=== PATIENT | male | born 1950 | race Caucasian/White ===

== ENCOUNTER 2018-08-01 07:54 | Day surgery (SDC) | payer MEDICARE, BC ==
[2018-08-01] MEDS ORDERED: Dextrose 5%-Lactated Ringers 1,000 ML IV SCH (08:30)
[2018-08-01] MEDS ORDERED: Propofol 200 MG/20 ML SDV ONE (08:46)
[2018-08-01] MEDS ORDERED: Midazolam 1 MG/ML 2 ML SDV ONE (08:46)
[2018-08-01] MEDS ORDERED: fentaNYL 100 MCG/2 ML SDV ONE (08:46)
[2018-08-01] MEDS ORDERED: Pantoprazole 40 MG Vial IVPUSH ONE (10:15)
[2018-08-01 11:20] VITALS: BP 166/97
--- NOTE | 2018-08-07 11:31 | OR ---
DATE OF PROCEDURE: 08/01/2018 PREOPERATIVE DIAGNOSIS: Laryngopharyngeal dysphagia. POSTOPERATIVE DIAGNOSES: 1. Laryngopharyngeal dysphagia with no obvious laryngopharyngeal pathology. 2. Small hiatal hernia, but with active gastroesophageal reflux disease with a focal small ulcer at the esophagogastric junction. 3. Moderate antral gastritis and duodenitis. OPERATIVE PROCEDURE: Esophagogastroduodenoscopy with: 1. Biopsies of esophagogastric junction for histologic evaluation. 2. Biopsies of antrum for CLOtest. ANESTHESIA: IV sedation. INDICATION FOR PROCEDURE: This is a 67-year-old presenting with a picture of dysphagia, primarily in the laryngopharyngeal area. He denies any obvious reflux symptoms and is not presently on any antisecretory medications. The plan is to proceed with an upper GI endoscopy with biopsies and/or dilation as indicated. Potential risks including bleeding and perforation were discussed, and the patient wishes to proceed. DETAILS OF PROCEDURE: The patient was taken to the operating room, placed in a left lateral decubitus position. IV sedation was administered, after which the upper GI endoscope was passed orally through the length of the esophagus and into the stomach with retroflexion view of the fundus, thereafter through the pyloric channel and into the proximal duodenum. Findings included normal hypopharynx, larynx, and upper esophageal sphincter. No real suggestion of inflammation was seen in this region and likewise no anatomic abnormalities or masses identified. Within the body of the esophagus, no significant abnormalities were noted. At the EG junction, a small hiatal hernia was present which resulted in a fairly wide open esophagogastric junction. This was associated with some active gastroesophageal reflux disease with the EG junction being reddened and a small focal ulcer was also present. There was no plaquing or stricturing suggestive of neoplasia per se. Within the remainder of the stomach, there was some patchy antral gastritis as well as some patchy duodenitis within the duodenal bulb. The duodenum beyond that point to the junction of the second and third portions was unremarkable. At this point, biopsies were obtained from esophagogastric junction, sent for histologic evaluation and biopsies were also obtained from the antrum and sent for CLOtest for H. pylori. Minimal bleeding from the biopsy sites was seen and the procedure then concluded. The patient obviously has an element of gastroesophageal reflux disease, and given this, we will start him on Protonix 40 mg a day. The patient's laryngopharyngeal dysphagia symptoms may or may not be related to the reflux. Treating the reflux may sort that out, although it takes quite a while at least in many cases several weeks before one sees an improvement in the laryngopharyngeal symptoms if the reflux is treated. Given this, we will also set him up for an x-ray, swallow study, and Speech Pathology evaluation, and then once this has been completed, a followup appointment with Ajay Marcos CNP in [facility]. Lester Cr MD /[id number]
== END 2018-08-01 11:55 | disposition home or self-care (01) ==
LOC: JP.SDS 07:54
PROVIDERS: ATTEND Surgery
DX: R13.14 Dysphagia, pharyngoesophageal phase (principal); K29.50 Unspecified chronic gastritis without bleeding; K44.9 Diaphragmatic hernia without obstruction or gangrene; K21.9 Gastro-esophageal reflux disease without esophagitis; K22.10 Ulcer of esophagus without bleeding; K29.80 Duodenitis without bleeding; E11.9 Type 2 diabetes mellitus without complications; E78.5 Hyperlipidemia, unspecified; I10 Essential (primary) hypertension; F32.9 Major depressive disorder, single episode, unspecified
CPT/HCPCS: 43239; 87081; 88305; C9113; J2250; J2704; J3010; J7042

== ENCOUNTER 2021-03-10 06:52 | Day surgery (SDC) | payer BC, MEDICARE ==
[~2021-03-10 06:52] MED LIST: Midazolam 1 MG/ML 2 ML SDV ONE; Propofol 200 MG/20 ML SDV ONE; fentaNYL 100 MCG/2 ML SDV ONE
[2021-03-10] MEDS ORDERED: Sodium Chloride 0.9% 1,000 ML IV SCH (07:30)
[2021-03-10] MEDS ORDERED: Propofol 200 MG/20 ML SDV ONE (08:50)
[2021-03-10 10:01] VITALS: BP 142/94; PULSE 72
--- NOTE | 2021-03-10 13:18 | OR ---
DATE OF PROCEDURE: 03/10/2021 SURGEON: Ventura Brunner MD PROCEDURES: 1. Esophagogastroduodenoscopy. 2. Colonoscopy. FINDINGS: 1. Normal EGD. 2. Normal colonoscopy. PREOPERATIVE DIAGNOSIS: Anemia. POSTOPERATIVE DIAGNOSIS: Anemia. RISKS: Risks, benefits, alternatives, and limitations including but not limited to infection, bleeding, perforation, and false positives and false negatives were explained to the patient and they wished to proceed. PROCEDURE IN DETAIL: The patient was placed in left lateral decubitus position. The EGD scope was introduced and advanced atraumatically to second part of the duodenum. No evidence of duodenitis or ulceration were noted. No evidence of duodenitis. Within the stomach itself, there was no gastritis or ulceration. No old or new blood. The GE junction was normal except for a small approximately 1 cm hiatal hernia. The esophagus was normal. Digital rectal exam was performed. Next, scope was introduced to the ileocecal valve. A photo was taken of the appendiceal orifice. Scope was brought back to the ascending, transverse, and descending colon and retroflexed. No evidence of old or new blood. No masses. No polyps. No colitis. No diverticulosis. Greater than 8 minutes was spent removing the scope. The prep was acceptable, approximately 90% of luminal surface could be seen. No etiology for anemia. Recommend repeat colonoscopy in 10 years. Ventura Brunner MD /[id number]
== END 2021-03-10 10:05 | disposition home or self-care (01) ==
LOC: JP.SDS 06:52
PROVIDERS: ATTEND Surgery
DX: D64.9 Anemia, unspecified (principal); K44.9 Diaphragmatic hernia without obstruction or gangrene; I10 Essential (primary) hypertension; E11.9 Type 2 diabetes mellitus without complications
CPT/HCPCS: 43235; 45378; J2250; J2704; J3010; J7030

== ENCOUNTER 2024-06-24 12:04 | Emergency (ER) | payer BC ==
[2024-06-24 12:56] VITALS: BP 195/97; PULSE 74
[2024-06-24 13:36] LABS: BASOPHILS ABSOLUTE AUTO 0.04 K/uL (0.00-0.10); BASOPHILS PERCENT AUTO 0.6 % (0.1-1.3); EOSINOPHILS ABSOLUTE AUTO 0.17 K/uL (0.00-0.40); EOSINOPHILS PERCENT AUTO 2.7 % (0.0-5.4); HEMATOCRIT 39.2 % (38.4-49.7); HEMOGLOBIN 13.7 g/dL (12.9-16.9); IMMATURE GRAN PERCENT AUTO 0.3 % (0.0-0.7); LYMPHOCYTES ABSOLUTE AUTO 1.11 K/uL (0.8-3.3); LYMPHOCYTES PERCENT AUTO 17.8 % (11.4-47.7); MEAN CORPUSCULAR HEMOGLOBIN 31.1 pg (31.6-35.5); MEAN CORPUSCULAR HGB CONC 34.9 g/dL (31.6-35.5); MEAN CORPUSCULAR VOLUME 88.9 fL (81.4-99.0); MONOCYTES ABSOLUTE AUTO 0.45 K/uL (0.20-0.90); MONOCYTES PERCENT AUTO 7.2 % (3.3-12.6); NEUTROPHILS ABSOLUTE AUTO 4.45 K/uL (1.0-7.6); NEUTROPHILS PERCENT AUTO 71.4 % (40.0-78.1); PLATELET COUNT,PLT 176 K/uL (130-375); RED BLOOD CELL COUNT 4.41 M/uL (4.14-5.76); WHITE BLOOD CELL COUNT,WBC 6.2 K/uL (3.2-11.0)
[2024-06-24 13:42] LABS: IMMATURE GRAN ABSOLUTE AUTO 0.02 K/uL (0.00-0.23)
[2024-06-24] MEDS: Meclizine 25 MG Tab PO ONE (13:46)
[2024-06-24 13:55] LABS: PROTHROMBIN TIME 10.1 sec (9.2-10.6); PTT,PARTIAL THROMBOPLSTIN TIME 23.6 sec (21.8-27.3)
[2024-06-24 14:01] LABS: A/G RATIO 1.2 (1.2-2.2); ALANINE AMINOTRANSFERASE,ALT 41 U/L (12-78); ALBUMIN 3.9 g/dL (3.4-5.0); ALKALINE PHOSPHATASE 84 U/L (46-116); ANION GAP 8.6 mmol/L (5.0-14.0); ASPARTATE AMNIOTRANSFERASE,AST 22 U/L (15-37); BILIRUBIN TOTAL 0.7 mg/dL (0.2-1.0); BLOOD UREA NITROGEN,BUN 12 mg/dL (7-18); C-REACTIVE PROTEIN < 0.50 mg/dL (<0.50); CALCIUM 9.3 mg/dL (8.5-10.1); CARBON DIOXIDE,CO2 29 mmol/L (21-32); CHLORIDE,CL 106 mmol/L (100-108); EST CRCL DRUG DOSING (CG) 76.57 mL/min; ESTIMATED GFR 80 mL/min (>60); GLUCOSE RANDOM 112 mg/dL (74-106); MAGNESIUM 1.7 mg/dL (1.8-2.4); PHOSPHORUS 3.4 mg/dL (2.5-4.9); POTASSIUM,K 4.2 mmol/L (3.6-5.2); PROTEIN TOTAL,TP 7.1 g/dL (6.4-8.2); SODIUM,NA 144 mmol/L (140-148); T4 FREE 0.89 ng/dL (0.76-1.46); TROPONIN I HIGH SENSITIVITY 6.1 pg/mL (<=60.3)
[2024-06-24 14:05] LABS: APPEARANCE,URINE CLEAR (CLEAR); BILIRUBIN,URINE NEGATIVE (NEGATIVE); COLOR,URINE YELLOW (YELLOW); GLUCOSE,URINE NEGATIVE (NEGATIVE); KETONES,URINE NEGATIVE (NEGATIVE); LEUKOCYTE ESTERASE,URINE NEGATIVE (NEGATIVE); NITRITE,URINE NEGATIVE (NEGATIVE); OCCULT BLOOD,URINE NEGATIVE (NEGATIVE); PROTEIN,URINE NEGATIVE (NEGATIVE)
[2024-06-24 14:12] LABS: AMORPHOUS SEDIMENT,URINE NOT SEEN; BACTERIA,URINE NOT SEEN; EPITHELIAL CELLS,URINE RARE; MUCUS,URINE FEW; RBC,URINE 0-5 (0-5); WBC,URINE 0-5 (0-5)
== END 2024-06-24 15:24 | disposition home or self-care (01) ==
LOC: JP.ED 12:04
DX: R42 Dizziness and giddiness (principal); I10 Essential (primary) hypertension; E11.9 Type 2 diabetes mellitus without complications; E78.00 Pure hypercholesterolemia, unspecified; Z79.82 Long term (current) use of aspirin; Z79.899 Other long term (current) drug therapy; Z79.84 Long term (current) use of oral hypoglycemic drugs
CPT/HCPCS: 36415; 70450; 71046; 80053; 81001; 83605; 83735; 84100; 84439; 84484; 85025; 85610; 85730; 86140; 93005; 99284; A9270